=== PATIENT | male | born 1960 | race Caucasian/White ===

== ENCOUNTER 2021-03-14 19:39 | Day surgery (SDCO) | payer OTHER ==
[~2021-03-14] VITALS: Ht 185.4 cm; Wt 64.4 kg
[2021-03-14 20:34] LABS: BASOPHIL 0.3 % (0-2); HCT 42.7 % (42.0-52.0); HGB 15.7 g/dl (13.2-18.0); LYMPHOCYTE 12.7 % (15-48); MCH 34.4 pg (25.0-31.0); MCHC 36.8 g/dL (32.0-36.0); MCV 93.4 fL (78.0-100.0); MONOCYTE 14.1 % (0-12); NEUTROPHIL 70.5 % (41-80); NRBC 0; PLT 200 K/uL (150-400); RBC 4.57 M/uL (4.70-6.00); RDW 12.7 % (11.5-14.0); WBC 9.3 K/uL (4.0-10.5)
[2021-03-14 20:44] LABS: INR 0.91 (0.9-1.2); PROTHROMBIN TIME 11.7 SECONDS (11.8-13.4); PTT 27.3 SECONDS (24.4-34.7)
[2021-03-14 21:25] LABS: ALBUMIN 3.6 g/dL (3.4-5.0); BILIRUBIN - TOTAL 0.5 mg/dL (0.2-1.0); BUN/CREAT RATIO (CALC) 20.7 RATIO; CREATININE 0.82 mg/dL (0.67-1.17); FOLIC ACID (SERUM) 14.5 ng/mL (8.6-58.9); GLOBULIN (CALCULATION) 3.9 g/dL; POTASSIUM 3.7 mmol/L (3.5-5.1); TOTAL PROTEIN 7.5 g/dL (6.4-8.2)
[2021-03-14 22:19] LABS: CORONAVIRUS 2019 SARS-COV-2 NEGATIVE (NEGATIVE); INFLUENZA A NAA NEGATIVE (NEGATIVE)
[2021-03-14 23:05] LABS: BILIRUBIN NEGATIVE (NEGATIVE); BLOOD NEGATIVE Ery/uL (NEGATIVE); CLARITY CLEAR (CLEAR); COLOR YELLOW (YELLOW); GLUCOSE (U) NORMAL (NORMAL); LEUKOCYTES NEGATIVE Leu/uL (NEGATIVE); NITRITE NEGATIVE (NEGATIVE); PROTEIN NEGATIVE (NEGATIVE); SPECIFIC GRAVITY 1.015 (1.001-1.030); UROBILINOGEN 0.2 mg/dL (0.2-1.0)
[2021-03-15 00:32] LABS: BUN/CREAT RATIO (CALC) 23.1 RATIO; CREATININE 0.65 mg/dL (0.67-1.17); POTASSIUM 3.6 mmol/L (3.5-5.1)
[2021-03-15] MEDS ORDERED: NORCO 5-325 TA1 EACH PO (02:40)
[2021-03-15 07:15] LABS: BASOPHIL 0.4 % (0-2); EOSINOPHIL 1.9 % (0-5); HCT 37.5 % (42.0-52.0); LYMPHOCYTE 11.1 % (15-48); MCH 34.7 pg (25.0-31.0); MCHC 37.3 g/dL (32.0-36.0); MCV 92.8 fL (78.0-100.0); MONOCYTE 15.3 % (0-12); MPV 11.2 fL (6.0-9.5); NEUTROPHIL 70.9 % (41-80); NRBC 0; PLT 174 K/uL (150-400); RBC 4.04 M/uL (4.70-6.00); RDW 12.5 % (11.5-14.0); WBC 8.4 K/uL (4.0-10.5)
[2021-03-15 07:40] LABS: BUN/CREAT RATIO (CALC) 21.4 RATIO; CREATININE 0.56 mg/dL (0.67-1.17); POTASSIUM 3.6 mmol/L (3.5-5.1)
[2021-03-15 15:20] LABS: CREATININE 0.53 mg/dL (0.67-1.17); POTASSIUM 3.7 mmol/L (3.5-5.1)
--- NOTE | 2021-03-15 15:49 | NUR ---
03/15/21 Mr. Mchugh lives at home with his spouse. He is employed and able to meet his financial obligations. - No discharge planning needs are anticipated.
[2021-03-16 05:56] LABS: BASOPHIL 0.6 % (0-2); EOSINOPHIL 2.1 % (0-5); HCT 37.8 % (42.0-52.0); HGB 13.6 g/dl (13.2-18.0); LYMPHOCYTE 21.8 % (15-48); MCH 34.1 pg (25.0-31.0); MCV 94.7 fL (78.0-100.0); MONOCYTE 17.4 % (0-12); NEUTROPHIL 57.8 % (41-80); NRBC 0; PLT 174 K/uL (150-400); RBC 3.99 M/uL (4.70-6.00); RDW 13.1 % (11.5-14.0)
[2021-03-16 06:19] LABS: ALBUMIN 2.5 g/dL (3.4-5.0); BILIRUBIN - TOTAL 0.8 mg/dL (0.2-1.0); BUN/CREAT RATIO (CALC) 14.5 RATIO; CREATININE 0.55 mg/dL (0.67-1.17); GLOBULIN (CALCULATION) 3.1 g/dL; POTASSIUM 3.3 mmol/L (3.5-5.1); TOTAL PROTEIN 5.6 g/dL (6.4-8.2)
[2021-03-16] MEDS ORDERED: MIRALAX 238GM238 GM PO (08:32)
== END 2021-03-16 10:25 | disposition home or self-care (01) ==
LOC: FER 19:39 → FMS 03-15 01:12
PROVIDERS: Family Medicine; Internal Medicine; Nurse Practitioner; ADMIT Internal Medicine
DX: E87.1 Hypo-osmolality and hyponatremia (principal); K59.00 Constipation, unspecified; C14.0 Malignant neoplasm of pharynx, unspecified; E86.0 Dehydration; F10.10 Alcohol abuse, uncomplicated; I10 Essential (primary) hypertension; I25.10 Atherosclerotic heart disease of native coronary artery without angina pectoris; F17.210 Nicotine dependence, cigarettes, uncomplicated; Z20.822 Contact with and (suspected) exposure to COVID-19; Z91.81 History of falling; Z80.3 Family history of malignant neoplasm of breast; Z79.891 Long term (current) use of opiate analgesic; Z79.899 Other long term (current) drug therapy
CPT/HCPCS: 36415; 70450; 71250; 72125; 80048; 80053; 81003; 82607; 82746; 83605; 83690; 84145; 84484; 85025; 85610; 85730; 93005; G0378; J1170; J3411; J7030; J7120; U0002

== ENCOUNTER 2021-03-31 12:11 | Emergency (ER) | payer OTHER ==
[~2021-03-31 12:11] MED LIST: MIRALAX 238GM238 GM PO; NORCO 5-325 TA1 EACH PO
[2021-03-31 13:21] LABS: BASOPHIL 0.4 % (0-2); EOSINOPHIL 2.8 % (0-5); HCT 37.6 % (42.0-52.0); HGB 12.8 g/dl (13.2-18.0); LYMPHOCYTE 11.1 % (15-48); MCH 33.6 pg (25.0-31.0); MCV 98.7 fL (78.0-100.0); MONOCYTE 11.3 % (0-12); MPV 10.9 fL (6.0-9.5); NEUTROPHIL 73.9 % (41-80); NRBC 0; PLT 368 K/uL (150-400); RBC 3.81 M/uL (4.70-6.00); RDW 13.5 % (11.5-14.0); WBC 10.8 K/uL (4.0-10.5)
[2021-03-31 13:32] LABS: ALBUMIN 3.2 g/dL (3.4-5.0); BILIRUBIN - TOTAL 0.6 mg/dL (0.2-1.0); CREATININE 0.65 mg/dL (0.67-1.17); POTASSIUM 4.4 mmol/L (3.5-5.1); TOTAL PROTEIN 7.2 g/dL (6.4-8.2)
== END 2021-03-31 15:22 | disposition home or self-care (01) ==
LOC: FER 12:11
PROVIDERS: Nurse Practitioner Family
DX: I95.1 Orthostatic hypotension (principal); S00.83XA Contusion of other part of head, initial encounter; R53.1 Weakness; Z87.891 Personal history of nicotine dependence; W19.XXXA Unspecified fall, initial encounter
CPT/HCPCS: 36415; 80053; 85025; 93005; J2270; J2405; J7030

== ENCOUNTER → 2021-04-25 | Day surgery (SDC) | payer OTHER ==
[~2021-04-25] VITALS: Ht 185.4 cm; Wt 62.6 kg
[~2021-04-25] MED LIST changes: +DURAGESIC1 EAC1 TD; +MORPHINE S10 MG/5 M1 PO; +PERCOCET 5-3251 EACH PO
== END | disposition home or self-care (01) ==
LOC: FAS 10:07
DX: C11.9 Malignant neoplasm of nasopharynx, unspecified (principal); C02.9 Malignant neoplasm of tongue, unspecified; K31.89 Other diseases of stomach and duodenum; F17.210 Nicotine dependence, cigarettes, uncomplicated; I10 Essential (primary) hypertension; Z85.01 Personal history of malignant neoplasm of esophagus; Z72.89 Other problems related to lifestyle
CPT/HCPCS: 71045; C1788; J0690; J1644; J2250; J2704; J3010; J7120

== ENCOUNTER 2021-06-02 01:49 | Inpatient (IN) | payer OTHER ==
[~2021-06-02] VITALS: Ht 182.9 cm; Wt 53.0 kg
[2021-06-02 02:39] LABS: LACTIC ACID 8.4 mmol/L (0.4-1.9)
[2021-06-02 02:44] LABS: BILIRUBIN - TOTAL 0.3 mg/dL (0.2-1.0); BUN/CREAT RATIO (CALC) 44.2 RATIO; CREATININE 0.77 mg/dL (0.67-1.17); GLOBULIN (CALCULATION) 3.6 g/dL; MAGNESIUM 1.7 mg/dL (1.8-2.4); POTASSIUM 4.7 mmol/L (3.5-5.1); TOTAL PROTEIN 6.6 g/dL (6.4-8.2)
[2021-06-02 02:55] LABS: BASOPHIL 0.1 % (0-2); EOSINOPHIL 0 % (0-5); HCT 29.3 % (42.0-52.0); MCH 34.7 pg (25.0-31.0); MCHC 34.1 g/dL (32.0-36.0); MCV 101.7 fL (78.0-100.0); MONOCYTE 2.6 % (0-12); MPV 10.6 fL (6.0-9.5); NRBC 0; PLT 297 K/uL (150-400); RBC 2.88 M/uL (4.70-6.00); RDW 14.3 % (11.5-14.0); WBC 8.2 K/uL (4.0-10.5)
[2021-06-02 03:00] LABS: INR 0.99 (0.9-1.2); PROTHROMBIN TIME 12.5 SECONDS (11.8-13.4)
[2021-06-02 03:02] LABS: NEUTROPHIL 90.6 % (41-80)
[2021-06-02 09:59] LABS: BILIRUBIN NEGATIVE (NEGATIVE); BLOOD NEGATIVE Ery/uL (NEGATIVE); CLARITY CLEAR (CLEAR); COLOR YELLOW (YELLOW); GLUCOSE (U) TRACE mg/dL (NORMAL); LEUKOCYTES NEGATIVE Leu/uL (NEGATIVE); NITRITE NEGATIVE (NEGATIVE); PROTEIN NEGATIVE (NEGATIVE); UROBILINOGEN 0.2 mg/dL (0.2-1.0)
[2021-06-02] MEDS ORDERED: DECADRON4 MG PO (14:22)
[2021-06-03 06:14] LABS: BILIRUBIN NEGATIVE (NEGATIVE); BLOOD TRACE-INTACT Ery/uL (NEGATIVE); CLARITY CLEAR (CLEAR); COLOR YELLOW (YELLOW); GLUCOSE (U) NORMAL (NORMAL); LEUKOCYTES NEGATIVE Leu/uL (NEGATIVE); NITRITE NEGATIVE (NEGATIVE); PROTEIN NEGATIVE (NEGATIVE); SPECIFIC GRAVITY 1.025 (1.001-1.030); UROBILINOGEN 0.2 mg/dL (0.2-1.0)
[2021-06-03 06:23] LABS: BACTERIA TRACE; SQUAMOUS EPITHELIAL CELLS RARE; URINARY RBC RARE
--- NOTE | 2021-06-03 12:38 | NUR ---
DILLARD ORDER TO CHANGE [employer]LE HRMS DEVELOPER DILAUDID SETTINGS. [employer]LE HRMS DEVELOPER CHANGED TO 0.2 MG/10 MIN 4 HOUR LOCKOUT 2.5MG
--- NOTE | 2021-06-03 16:19 | NUR ---
06/03/21 Mr. Mchugh is followed at [facility]. He lives at home with his spouse. He does not use any DME nor followed by HH. HH services will not be available at discharge; the 3 agencies do not accept his insurance. - Mr. Mchugh is receiving early SS jail. The family was advised to discuss applying for SSD with [employer].
[2021-06-04 05:02] LABS: BASOPHIL 0 % (0-2); EOSINOPHIL 0 % (0-5); HCT 23.7 % (42.0-52.0); HGB 8.1 g/dl (13.2-18.0); LYMPHOCYTE 5.1 % (15-48); MCH 34.3 pg (25.0-31.0); MCHC 34.2 g/dL (32.0-36.0); MCV 100.4 fL (78.0-100.0); MONOCYTE 5.7 % (0-12); MPV 9.7 fL (6.0-9.5); NEUTROPHIL 88.2 % (41-80); NRBC 0; PLT 145 K/uL (150-400); RBC 2.36 M/uL (4.70-6.00); RDW 14.5 % (11.5-14.0); WBC 5.1 K/uL (4.0-10.5)
[2021-06-04 05:42] LABS: ALBUMIN 1.7 g/dL (3.4-5.0); ALKALINE PHOSHATASE 62 U/L (46-116); ALT 34 U/L (16-63); AST 22 U/L (15-37); BILIRUBIN - TOTAL 0.8 mg/dL (0.2-1.0); BUN 15 mg/dL (7-18); BUN/CREAT RATIO (CALC) 20.3 RATIO; CHLORIDE 99 mmol/L (98-107); CO2 (BICARBONATE) 28 mmol/L (21-32); CREATININE 0.74 mg/dL (0.67-1.17); GLOBULIN (CALCULATION) 3.4 g/dL; GLUCOSE 77 mg/dL (74-106); POTASSIUM 2.5 mmol/L (3.5-5.1); TOTAL PROTEIN 5.1 g/dL (6.4-8.2)
[2021-06-04 05:50] LABS: C-REACTIVE PROTEIN > 18.00 mg/dL (<=0.90); MAGNESIUM 1.1 mg/dL (1.8-2.4)
--- NOTE | 2021-06-04 14:35 | NUR ---
0740 PT O2 SATS 72% ON 3LPM, LUNGS SOUNDS DIMINISHED ON RIGHT. PT SWITCHED TO 50% VENTI WITH SATS 77%. NO RESP. DISTRESS, PT ALERT AND ORIENTED DR. SILVERMAN NOTIFIED, WILL SWITCH TO NRB. PT PLACED ON NRB O2 SAT 80%, KARIN RT CALLED TO PT BEDSIDE. STAT CXRAY AND ABG ORDERED. PT PLACED ON HIGH FLOW O2. DR. SILVERMAN AT BEDSIDE. CT SCAN ORDERED
[2021-06-05 06:25] LABS: BASOPHIL 0.4 % (0-2); EOSINOPHIL 0 % (0-5); HCT 23.6 % (42.0-52.0); HGB 8.3 g/dl (13.2-18.0); LYMPHOCYTE 6.4 % (15-48); MCH 34.7 pg (25.0-31.0); MCHC 35.2 g/dL (32.0-36.0); MCV 98.7 fL (78.0-100.0); MONOCYTE 7.9 % (0-12); MPV 10.1 fL (6.0-9.5); NEUTROPHIL 84.2 % (41-80); PLT 141 K/uL (150-400); RBC 2.39 M/uL (4.70-6.00); RDW 14.4 % (11.5-14.0); WBC 2.7 K/uL (4.0-10.5)
[2021-06-05 06:26] LABS: NRBC 0
[2021-06-05 06:54] LABS: ALBUMIN 1.8 g/dL (3.4-5.0); BILIRUBIN - TOTAL 0.8 mg/dL (0.2-1.0); BUN/CREAT RATIO (CALC) 23.4 RATIO; CREATININE 0.94 mg/dL (0.67-1.17); GLOBULIN (CALCULATION) 2.6 g/dL; MAGNESIUM 1.6 mg/dL (1.8-2.4); PHOSPHORUS 4.2 mg/dL (2.6-4.7); POTASSIUM 3.3 mmol/L (3.5-5.1); TOTAL PROTEIN 4.4 g/dL (6.4-8.2)
[2021-06-06 05:59] LABS: BASOPHIL 0.3 % (0-2); EOSINOPHIL 0 % (0-5); HCT 23.2 % (42.0-52.0); HGB 8.1 g/dl (13.2-18.0); MCH 34.9 pg (25.0-31.0); MCHC 34.9 g/dL (32.0-36.0); MONOCYTE 5.8 % (0-12); MPV 9.6 fL (6.0-9.5); NEUTROPHIL 87.6 % (41-80); NRBC 0; PLT 144 K/uL (150-400); RBC 2.32 M/uL (4.70-6.00); RDW 14.5 % (11.5-14.0); WBC 3.8 K/uL (4.0-10.5)
[2021-06-06 06:31] LABS: ALBUMIN 1.7 g/dL (3.4-5.0); BILIRUBIN - TOTAL 0.5 mg/dL (0.2-1.0); BUN/CREAT RATIO (CALC) 22.5 RATIO; CREATININE 0.71 mg/dL (0.67-1.17); GLOBULIN (CALCULATION) 3.4 g/dL; MAGNESIUM 1.8 mg/dL (1.8-2.4); PHOSPHORUS 2.4 mg/dL (2.6-4.7); POTASSIUM 2.6 mmol/L (3.5-5.1); TOTAL PROTEIN 5.1 g/dL (6.4-8.2)
[2021-06-06 07:05] LABS: NEUTROPHILS(M) 70 % (41-80)
[2021-06-06 07:06] LABS: BAND 15 % (0-10); LYMPHOCYTE(M) 10 % (15-48); MONOCYTE(M) 5 % (0-12); PLATELET ESTIMATE NORMAL; PLATELET MORPHOLOGY NORMAL
[2021-06-08 05:52] LABS: BASOPHIL 0.2 % (0-2); EOSINOPHIL 0.2 % (0-5); HCT 22.1 % (42.0-52.0); HGB 7.8 g/dl (13.2-18.0); LYMPHOCYTE 12.4 % (15-48); MCH 34.7 pg (25.0-31.0); MCHC 35.3 g/dL (32.0-36.0); MCV 98.2 fL (78.0-100.0); MONOCYTE 6.2 % (0-12); MPV 9.8 fL (6.0-9.5); NEUTROPHIL 79.7 % (41-80); NRBC 0; PLT 143 K/uL (150-400); RBC 2.25 M/uL (4.70-6.00); RDW 14.2 % (11.5-14.0)
[2021-06-08 06:03] LABS: BUN/CREAT RATIO (CALC) 21.7 RATIO; CREATININE 0.6 mg/dL (0.67-1.17); PHOSPHORUS 2.5 mg/dL (2.6-4.7)
[2021-06-08 06:14] LABS: WBC 4.5 K/uL (4.0-10.5)
[2021-06-08 06:28] LABS: MAGNESIUM 1.2 mg/dL (1.8-2.4)
[2021-06-09 05:35] LABS: BASOPHIL 0.3 % (0-2); EOSINOPHIL 0.3 % (0-5); HCT 19.1 % (42.0-52.0); HGB 6.6 g/dl (13.2-18.0); LYMPHOCYTE 15.6 % (15-48); MCH 34.4 pg (25.0-31.0); MCHC 34.6 g/dL (32.0-36.0); MCV 99.5 fL (78.0-100.0); MONOCYTE 6.2 % (0-12); MPV 9.9 fL (6.0-9.5); NEUTROPHIL 76.8 % (41-80); NRBC 0; PLT 124 K/uL (150-400); RBC 1.92 M/uL (4.70-6.00); RDW 14.6 % (11.5-14.0)
[2021-06-09 05:41] LABS: WBC 3.9 K/uL (4.0-10.5)
[2021-06-09 08:11] LABS: BUN/CREAT RATIO (CALC) 28.3 RATIO; CREATININE 0.6 mg/dL (0.67-1.17); MAGNESIUM 1.3 mg/dL (1.8-2.4); PHOSPHORUS 2.4 mg/dL (2.6-4.7)
[2021-06-09 08:17] LABS: POTASSIUM 2.1 mmol/L (3.5-5.1)
--- NOTE | 2021-06-09 15:46 | NUR ---
KHADIJAH discussed nutrition recommendations to MD Ledesma; requested to decrease TF rate until lytes WNL
[2021-06-09 16:05] LABS: IRON % SATURATION 93.8 %SAT (20-50)
[2021-06-09 16:52] LABS: FOLIC ACID (SERUM) 17.4 ng/mL (8.6-58.9)
[2021-06-10 05:49] LABS: BASOPHIL 0.2 % (0-2); EOSINOPHIL 0 % (0-5); LYMPHOCYTE 10.8 % (15-48); MCH 33.2 pg (25.0-31.0); MONOCYTE 5.4 % (0-12); MPV 9.9 fL (6.0-9.5); NEUTROPHIL 82.7 % (41-80); NRBC 0; PLT 119 K/uL (150-400); RBC 2.95 M/uL (4.70-6.00); RDW 17.6 % (11.5-14.0); WBC 4.3 K/uL (4.0-10.5)
[2021-06-10 05:55] LABS: HGB 9.8 g/dl (13.2-18.0); MCV 94.9 fL (78.0-100.0)
[2021-06-10 06:20] LABS: BUN/CREAT RATIO (CALC) 18.6 RATIO; CREATININE 0.59 mg/dL (0.67-1.17); MAGNESIUM 1.4 mg/dL (1.8-2.4); PHOSPHORUS 2.9 mg/dL (2.6-4.7)
[2021-06-10 06:25] LABS: POTASSIUM 2.3 mmol/L (3.5-5.1)
--- NOTE | 2021-06-10 14:20 | NUR ---
06/[address] with Omid Jeffrey: discharge plans. They hope to return if Mr. Mchugh improves with mobility. Ms. Mchugh reports that he was able to stand today.
[2021-06-11 08:58] LABS: BUN/CREAT RATIO (CALC) 15.3 RATIO; CREATININE 0.59 mg/dL (0.67-1.17); MAGNESIUM 1.2 mg/dL (1.8-2.4); POTASSIUM 2.6 mmol/L (3.5-5.1)
[2021-06-12 05:30] LABS: BASOPHIL 0 % (0-2); EOSINOPHIL 0.3 % (0-5); HCT 22.5 % (42.0-52.0); HGB 7.6 g/dl (13.2-18.0); LYMPHOCYTE 12.3 % (15-48); MCH 33.2 pg (25.0-31.0); MCHC 33.8 g/dL (32.0-36.0); MCV 98.3 fL (78.0-100.0); MONOCYTE 8.3 % (0-12); MPV 10.2 fL (6.0-9.5); NEUTROPHIL 78.2 % (41-80); NRBC 0; PLT 115 K/uL (150-400); RBC 2.29 M/uL (4.70-6.00); RDW 18.2 % (11.5-14.0); WBC 3.5 K/uL (4.0-10.5)
[2021-06-12 05:46] LABS: BUN/CREAT RATIO (CALC) 12.1 RATIO; CREATININE 0.58 mg/dL (0.67-1.17); MAGNESIUM 1.2 mg/dL (1.8-2.4); PHOSPHORUS 2.3 mg/dL (2.6-4.7); POTASSIUM 3.2 mmol/L (3.5-5.1)
[2021-06-13 06:46] LABS: BASOPHIL 0.3 % (0-2); EOSINOPHIL 0.3 % (0-5); HCT 22.1 % (42.0-52.0); HGB 7.4 g/dl (13.2-18.0); LYMPHOCYTE 14.5 % (15-48); MCHC 33.5 g/dL (32.0-36.0); MCV 98.7 fL (78.0-100.0); MONOCYTE 8.3 % (0-12); MPV 10.2 fL (6.0-9.5); NEUTROPHIL 75.7 % (41-80); NRBC 0; PLT 135 K/uL (150-400); RBC 2.24 M/uL (4.70-6.00); RDW 18.1 % (11.5-14.0); WBC 3.3 K/uL (4.0-10.5)
[2021-06-13 06:59] LABS: BUN/CREAT RATIO (CALC) 8.6 RATIO; CREATININE 0.58 mg/dL (0.67-1.17); MAGNESIUM 1.2 mg/dL (1.8-2.4); POTASSIUM 4.1 mmol/L (3.5-5.1)
[2021-06-14 04:55] LABS: BASOPHIL 0 % (0-2); EOSINOPHIL 0.3 % (0-5); HCT 23.6 % (42.0-52.0); HGB 7.8 g/dl (13.2-18.0); LYMPHOCYTE 13.8 % (15-48); MCH 32.9 pg (25.0-31.0); MCHC 33.1 g/dL (32.0-36.0); MCV 99.6 fL (78.0-100.0); MONOCYTE 10.4 % (0-12); MPV 10.7 fL (6.0-9.5); NEUTROPHIL 74.5 % (41-80); NRBC 0; PLT 160 K/uL (150-400); RBC 2.37 M/uL (4.70-6.00); RDW 18.2 % (11.5-14.0)
[2021-06-14 05:12] LABS: BUN/CREAT RATIO (CALC) 15.6 RATIO; CREATININE 0.64 mg/dL (0.67-1.17); MAGNESIUM 1.5 mg/dL (1.8-2.4); POTASSIUM 4.5 mmol/L (3.5-5.1)
--- NOTE | 2021-06-14 15:20 | NUR ---
06/14/21 Ms. Mchugh states that she is unable to care for Mr. Mchugh at home. Referrals have been sent to 12 SNFs. [facility] has declined due to insurance.
[2021-06-15 05:41] LABS: BASOPHIL 0.3 % (0-2); EOSINOPHIL 0.3 % (0-5); HCT 22.9 % (42.0-52.0); HGB 7.7 g/dl (13.2-18.0); MCH 33.2 pg (25.0-31.0); MCHC 33.6 g/dL (32.0-36.0); MCV 98.7 fL (78.0-100.0); MONOCYTE 10.5 % (0-12); MPV 10.1 fL (6.0-9.5); NEUTROPHIL 68.5 % (41-80); NRBC 0; PLT 196 K/uL (150-400); RBC 2.32 M/uL (4.70-6.00); RDW 18.6 % (11.5-14.0); WBC 2.9 K/uL (4.0-10.5)
[2021-06-15 06:51] LABS: CREATININE 0.59 mg/dL (0.67-1.17); MAGNESIUM 1.7 mg/dL (1.8-2.4); POTASSIUM 4.5 mmol/L (3.5-5.1)
--- NOTE | 2021-06-15 12:05 | NUR ---
RD discussed diarrhea with MD Ledesma; possible addition of a soluble fiber supplement (Metamucil or Benefiber) were suggested. will follow for POC.
--- NOTE | 2021-06-15 12:44 | NUR ---
06/15/32 [facility] has denied Mr. Mchugh stating they cannot meet his needs.
--- NOTE | 2021-06-15 13:07 | NUR ---
06/15/21 [facility] and [facility] are willing to accept as Medicaid pending if eligible. Bi Rahman will call spouse for financial information.
[2021-06-16 06:45] LABS: BASOPHIL 0.3 % (0-2); EOSINOPHIL 0.6 % (0-5); HCT 24.3 % (42.0-52.0); LYMPHOCYTE 20.3 % (15-48); MCH 33.1 pg (25.0-31.0); MCHC 32.9 g/dL (32.0-36.0); MCV 100.4 fL (78.0-100.0); MONOCYTE 11.6 % (0-12); MPV 10.3 fL (6.0-9.5); NEUTROPHIL 64.9 % (41-80); NRBC 0; PLT 266 K/uL (150-400); RBC 2.42 M/uL (4.70-6.00); RDW 18.6 % (11.5-14.0)
[2021-06-16 06:49] LABS: WBC 3.1 K/uL (4.0-10.5)
[2021-06-16 07:02] LABS: BUN/CREAT RATIO (CALC) 28.1 RATIO; CREATININE 0.57 mg/dL (0.67-1.17); MAGNESIUM 1.5 mg/dL (1.8-2.4); PHOSPHORUS 4.6 mg/dL (2.6-4.7); POTASSIUM 4.6 mmol/L (3.5-5.1)
[2021-06-17 06:52] LABS: BASOPHIL 0.3 % (0-2); EOSINOPHIL 0.3 % (0-5); HCT 24.3 % (42.0-52.0); MCH 33.3 pg (25.0-31.0); MCHC 32.9 g/dL (32.0-36.0); MCV 101.3 fL (78.0-100.0); MONOCYTE 15.8 % (0-12); MPV 10.1 fL (6.0-9.5); NEUTROPHIL 58.1 % (41-80); NRBC 0; PLT 309 K/uL (150-400); RDW 18.7 % (11.5-14.0)
[2021-06-17 07:11] LABS: LYMPHOCYTE 21.8 % (15-48)
[2021-06-17 07:14] LABS: CREATININE 0.58 mg/dL (0.67-1.17); POTASSIUM 4.9 mmol/L (3.5-5.1)
--- NOTE | 2021-06-17 15:52 | NUR ---
06/17 Awaiting [facility]'s response if they can accept patient on tube feeding at rate of 45 and increase to goal of 75. - Ms. Mchugh is in agreement with placement at [facility].
[2021-06-19 06:42] LABS: BASOPHIL 0.6 % (0-2); EOSINOPHIL 1.3 % (0-5); HCT 24.6 % (42.0-52.0); HGB 8.2 g/dl (13.2-18.0); LYMPHOCYTE 23.2 % (15-48); MCH 33.5 pg (25.0-31.0); MCHC 33.3 g/dL (32.0-36.0); MCV 100.4 fL (78.0-100.0); MONOCYTE 21.6 % (0-12); MPV 10.2 fL (6.0-9.5); NEUTROPHIL 47.9 % (41-80); NRBC 0; PLT 414 K/uL (150-400); RBC 2.45 M/uL (4.70-6.00); RDW 18.6 % (11.5-14.0); WBC 3.2 K/uL (4.0-10.5)
[2021-06-19 06:47] LABS: BILIRUBIN - TOTAL 0.2 mg/dL (0.2-1.0); BUN/CREAT RATIO (CALC) 31.6 RATIO; CREATININE 0.57 mg/dL (0.67-1.17); GLOBULIN (CALCULATION) 3.7 g/dL; PHOSPHORUS 4.5 mg/dL (2.6-4.7); POTASSIUM 4.6 mmol/L (3.5-5.1); TOTAL PROTEIN 5.7 g/dL (6.4-8.2)
[2021-06-19 06:51] LABS: MAGNESIUM 1.2 mg/dL (1.8-2.4)
[2021-06-19 16:15] LABS: RETICULOCYTE COUNT 3.6 % (1.0-2.0)
[2021-06-19 16:26] LABS: IRON % SATURATION 50.7 %SAT (20-50)
[2021-06-19 16:53] LABS: FOLIC ACID (SERUM) 12.6 ng/mL (8.6-58.9)
[2021-06-20 05:54] LABS: BASOPHIL 0.6 % (0-2); EOSINOPHIL 1.9 % (0-5); HCT 25.1 % (42.0-52.0); HGB 8.5 g/dl (13.2-18.0); LYMPHOCYTE 19.9 % (15-48); MCH 33.9 pg (25.0-31.0); MCHC 33.9 g/dL (32.0-36.0); MONOCYTE 22.1 % (0-12); MPV 9.5 fL (6.0-9.5); NEUTROPHIL 50.8 % (41-80); NRBC 0; PLT 423 K/uL (150-400); RBC 2.51 M/uL (4.70-6.00); RDW 18.6 % (11.5-14.0); WBC 3.2 K/uL (4.0-10.5)
[2021-06-20 06:10] LABS: BUN/CREAT RATIO (CALC) 37.9 RATIO; CREATININE 0.58 mg/dL (0.67-1.17); POTASSIUM 4.7 mmol/L (3.5-5.1)
[2021-06-20 06:17] LABS: MAGNESIUM 1.8 mg/dL (1.8-2.4)
--- NOTE | 2021-06-20 11:51 | NUR ---
06/20/21 [facility] will accept patient for admission today proving we send feeding to carry patient through Sunday. Please call report to: [phone] and fax DS to: [phone]. Report given to MS MEGHA Yoon and Dr. Fowler. - Patient meets criteria for EMS transport.
[2021-06-20] MEDS ORDERED: LANSOPRAZOLE30 M1 NG (13:45)
[2021-06-20] MEDS ORDERED: CARDURA2 MG JT (13:45)
[2021-06-20] MEDS ORDERED: LOPRESSOR25 MG GT (13:45)
[2021-06-20] MEDS ORDERED: HYDROCODON-ACET15 ML JT (13:45)
[2021-06-20] MEDS ORDERED: CHOLESTYRAMINE L4 GM JT (13:45)
[2021-06-20] MEDS ORDERED: METAMUCIL1 DOSE JT (13:45)
[2021-06-20] MEDS ORDERED: LOPRESSOR25 MG JT (14:40)
== END 2021-06-20 17:55 | DRG 326 ==
LOC: FER 01:49 → FAS 06:01 → FTCU 11:10 → FMS 11:10 → FTCU 12:43 → FMS 06-10 09:56
PROVIDERS: Emergency Medicine Emergency Medical Services; Internal Medicine; ADMIT Surgery
PROC: 0D9600Z Drainage of Stomach with Drainage Device, Open Approach (ICD-10-PCS; 2021-06-02)
PROC: 0DHA0UZ Insertion of Feeding Device into Jejunum, Open Approach (ICD-10-PCS; 2021-06-02)
PROC: 3E03329 Introduction of Other Anti-infective into Peripheral Vein, Percutaneous Approach (ICD-10-PCS; 2021-06-02)
PROC: 0DB60ZZ Excision of Stomach, Open Approach (ICD-10-PCS; principal; 2021-06-02 07:00)
PROC: 5A0935A Assistance with Respiratory Ventilation, Less than 24 Consecutive Hours, High Flow/Velocity Cannula (ICD-10-PCS; 2021-06-04)
PROC: 3E0H76Z Introduction of Nutritional Substance into Lower GI, Via Natural or Artificial Opening (ICD-10-PCS; 2021-06-06)
PROC: 30233N1 Transfusion of Nonautologous Red Blood Cells into Peripheral Vein, Percutaneous Approach (ICD-10-PCS; 2021-06-09)
DX: K63.1 Perforation of intestine (nontraumatic) (principal); E43 Unspecified severe protein-calorie malnutrition; J96.01 Acute respiratory failure with hypoxia; J69.0 Pneumonitis due to inhalation of food and vomit; K65.9 Peritonitis, unspecified; D62 Acute posthemorrhagic anemia; J90 Pleural effusion, not elsewhere classified; Z68.1 Body mass index [BMI] 19.9 or less, adult; Z20.822 Contact with and (suspected) exposure to COVID-19; C11.9 Malignant neoplasm of nasopharynx, unspecified; R13.10 Dysphagia, unspecified; I48.0 Paroxysmal atrial fibrillation; R33.9 Retention of urine, unspecified; R19.7 Diarrhea, unspecified; E83.42 Hypomagnesemia; I10 Essential (primary) hypertension; I25.10 Atherosclerotic heart disease of native coronary artery without angina pectoris; F17.210 Nicotine dependence, cigarettes, uncomplicated; D63.0 Anemia in neoplastic disease; Z79.899 Other long term (current) drug therapy
CPT/HCPCS: 36415; 36430; 36600; 71045; 71275; 80048; 80053; 81001; 81003; 82150; 82607; 82728; 82746; 82803; 83540; 83550; 83605; 83690; 83735; 83880; 84100; 84145; 84484; 85025; 85610; 85730; 86140; 86850; 86900; 86901; 86922; 87040; 87070; 87075; 87088; 87205; 87449; 93005; 94010; 97110; 97162; 97166; 97530; 97530-GP; 97535; C9113; J1170; J1642; J2001; J2270; J2370; J2405; J2543; J2916; J3420; J3475; J3480; J7030; J7040; J7050; J7120; P9016; Q9967; U0002

== ENCOUNTER 2021-09-05 09:19 | Inpatient (IN) | payer OTHER ==
[~2021-09-05] VITALS: Ht 185.4 cm; Wt 52.3 kg
[~2021-09-05 09:19] MED LIST changes: +CARDURA2 MG JT; +CHOLESTYRAMINE L4 GM JT; +DECADRON4 MG PO; +HYDROCODON-ACET15 ML JT; +LANSOPRAZOLE30 M1 NG; +LOPRESSOR25 MG GT; +LOPRESSOR25 MG JT; +METAMUCIL1 DOSE JT
[2021-09-05 10:35] LABS: BASOPHIL 0.8 % (0-2); HCT 31.3 % (42.0-52.0); HGB 10.6 g/dl (13.2-18.0); LYMPHOCYTE 7.2 % (15-48); MCH 33.3 pg (25.0-31.0); MCHC 33.9 g/dL (32.0-36.0); MCV 98.4 fL (78.0-100.0); MONOCYTE 16.9 % (0-12); MPV 9.7 fL (6.0-9.5); NEUTROPHIL 68.9 % (41-80); NRBC 0; PLT 266 K/uL (150-400); RBC 3.18 M/uL (4.70-6.00); RDW 13.4 % (11.5-14.0); WBC 6.6 K/uL (4.0-10.5)
[2021-09-05 10:58] LABS: ALBUMIN 2.9 g/dL (3.4-5.0); BILIRUBIN - TOTAL 0.4 mg/dL (0.2-1.0); BUN/CREAT RATIO (CALC) 16.9 RATIO; CREATININE 0.83 mg/dL (0.67-1.17); GLOBULIN (CALCULATION) 4.1 g/dL; MAGNESIUM 1.5 mg/dL (1.8-2.4); POTASSIUM 3.9 mmol/L (3.5-5.1)
[2021-09-05 11:08] LABS: CORONAVIRUS 2019 SARS-COV-2 NEGATIVE (NEGATIVE); INFLUENZA A NAA NEGATIVE (NEGATIVE)
[2021-09-05 11:11] LABS: LACTIC ACID 1.2 mmol/L (0.4-1.9)
[2021-09-05 13:50] LABS: BILIRUBIN NEGATIVE (NEGATIVE); BLOOD NEGATIVE Ery/uL (NEGATIVE); CLARITY CLEAR (CLEAR); COLOR YELLOW (YELLOW); GLUCOSE (U) NORMAL (NORMAL); LEUKOCYTES NEGATIVE Leu/uL (NEGATIVE); NITRITE NEGATIVE (NEGATIVE); PROTEIN NEGATIVE (NEGATIVE); SPECIFIC GRAVITY <=1.005 (1.001-1.030); UROBILINOGEN 0.2 mg/dL (0.2-1.0); pH 6.5 (5.0-9.0)
[2021-09-05] MEDS ORDERED: REMERON15 MG PO (18:59)
--- NOTE | 2021-09-05 21:43 | NUR ---
PATIENT REFUSED [facility] STATES INABILITY TO SWALLOW, INSTITUTIONAL AIDE NOTFIED NEW ORDER RECIEVED AND NOTED, INFORMED THAT COLACE LIQUID WAS NOT AVAILABLE AT THIS TIME. PLAN GIVE PRUNE JUICE IF AVAILABLE.
[2021-09-06 05:54] LABS: BASOPHIL 0.9 % (0-2); EOSINOPHIL 5.9 % (0-5); HCT 30.5 % (42.0-52.0); HGB 10.4 g/dl (13.2-18.0); LYMPHOCYTE 7.6 % (15-48); MCH 33.5 pg (25.0-31.0); MCHC 34.1 g/dL (32.0-36.0); MCV 98.4 fL (78.0-100.0); MONOCYTE 16.4 % (0-12); MPV 9.6 fL (6.0-9.5); NRBC 0; PLT 256 K/uL (150-400); RDW 13.4 % (11.5-14.0); WBC 6.5 K/uL (4.0-10.5)
[2021-09-06 06:30] LABS: BUN/CREAT RATIO (CALC) 16.5 RATIO; CREATININE 0.79 mg/dL (0.67-1.17); POTASSIUM 4.1 mmol/L (3.5-5.1)
--- NOTE | 2021-09-06 15:21 | NUR ---
09/06/21 Mr. Mchugh was admitted due to AMS. He was oriented to self, family, place, and month. He did not know the date. Ms. Mchugh reports his orientation to vary. - Mr. Mchugh is followed by Drs. Fajardo and Monique. He has completed his treatment for throat cancer. They are waiting on test results. - Mr. Mchugh is Independent with mobility.
== END 2021-09-06 18:46 | disposition home or self-care (01) | DRG 54 ==
LOC: FER 09:19 → FMS 13:26
PROVIDERS: Emergency Medicine; ADMIT Family Medicine
DX: C79.31 Secondary malignant neoplasm of brain (principal); G93.41 Metabolic encephalopathy; E43 Unspecified severe protein-calorie malnutrition; E87.1 Hypo-osmolality and hyponatremia; K94.23 Gastrostomy malfunction; Z68.1 Body mass index [BMI] 19.9 or less, adult; Z20.822 Contact with and (suspected) exposure to COVID-19; Z66 Do not resuscitate; I95.1 Orthostatic hypotension; C01 Malignant neoplasm of base of tongue; D63.0 Anemia in neoplastic disease; K59.00 Constipation, unspecified; E83.42 Hypomagnesemia; Z90.49 Acquired absence of other specified parts of digestive tract; Z87.891 Personal history of nicotine dependence; Z92.3 Personal history of irradiation
CPT/HCPCS: 36415; 70450; 70491; 70551; 70552; 71260; 80048; 80053; 81003; 83605; 83735; 84145; 85025; 87040; 87088; 93005; 97162; 97165; A9579; J1642; J1650; J3475; J7030; Q9967; U0002